=== PATIENT | female | born 1985 | race Hispanic/Latino ===

== ENCOUNTER 2017-01-02 12:56 | Emergency (ER) | payer OTHER ==
[~2017-01-02] VITALS: Ht 165.1 cm; Wt 103.6 kg
[2017-01-02 13:06] VITALS: BP 129/80; PULSE 71; RESP 18; O2SAT 99
--- NOTE | 2017-01-02 16:33 | ED.REPORT ---
HPI-General Illness Date of Service Jan 02, 2017 ED Provider: Adam Britt MD A 31 year old female with a history of ectopic and D&C presents to the ED complaining of back pain. The pt has been experiencing progressively worsening left-sided back pain for three days, which has been progressively worsening. The pain was severe enough today that she was unable to walk normally. The pt describes the pain as an "aching, sharp pain" that radiates into her left leg and is exacerbated by movement, currently rated at a 5/10. She denies diarrhea, constipation, incontinence, chest pain, shortness of breath , abdominal pain, urinary retention, fever, chills, nausea or vomiting. She also denies recent trauma or a history of IV drug use. The pt has experienced intermittent back pain for several years, but the pain usually resolves on its own. Nursing Notes Stated Complaint: BACK PAIN Chief Complaint: Back Pain or Injury Nursing Notes Reviewed: Yes Allergies: Coded Allergies: No Known Allergies (Verified , 09/01/03) General Time Seen by MD: 15:51 Chief Complaint Back pain Hx Obtained From: Patient Arrived By: Walk-in Sudden in Onset?: No Onset Occurred: 2 days ago Symptom Duration: Since onset Location: : Back Quality: Aching, Sharp Radiation: : Leg left Severity: Current: Pain level 5 out of 10 Recent Healthcare: No recent hospitalization Similar Sx Previous: Yes Past Medical History Past Medical History ectopic Past Surgical History D&C 2003 Smoking History Unknown if Ever Smoker Social History denies history of IV drug use Other Social History: Good social support Ambulatory Status Independent Review of Systems denies urinary retention denies incontinence Full Review of Systems Constitutional: Denies: Chills, Fever Respiratory: Denies: Non-productive cough, Shortness of breath Cardiovascular: Denies: Chest pain GI: Denies: Abdominal pain, Constipation, Diarrhea, Nausea, Vomiting Musculoskeletal: Reports: Back pain, Extremity pain, Denies: Neck pain Skin: Denies Rash Complete sys rev & neg: except as marked. Physical Exam Constitutional: Well-developed, well-nourished. Not diaphoretic. Head: Normocephalic and atraumatic. Mouth/Throat: Oropharynx is clear and moist. No oropharyngeal exudate. Eyes: EOM are normal. Pupils are equal, round, and reactive to light. Neck: Supple, no tracheal deviation. Cardiovascular: Normal rate, regular rhythm. Equal and intact distal pulses throughout. Pulmonary/Chest: Effort normal and breath sounds normal. No respiratory distress. Abdominal: Soft. No distension. There is no tenderness, rebound, or guarding. Bowel sounds present. Back: Mild lumbar paraspinous tenderness to palpation. No cervical or thoracic tenderness to palpation. No midline tenderness. Musculoskeletal: Range of motion grossly intact, moving all extremities. No edema or tenderness appreciated. Neurological: AOx3. Grossly nonfocal exam. Strength and sensation intact and equal to bilateral upper and lower extremities. Skin: Warm and dry, no rashes or pallor appreciated. Psychiatric: Appropriate mood and affect. Behavior appears normal. Vital Signs Vital Signs Date Time Temp Pulse Resp B/P Pulse Ox O2 Delivery O2 Flow Rate FiO2 01/02/17 13:06 36.8 71 18 129/80 99 Initial VS: Reviewed Interpretation & Diagnostics Lab Results Interpretation Test 01/02/17 17:10 Re-Eval/Medical Decision Med Decision/Clinical Course [id number] In summary, 31-year-old female presenting to the ED for evaluation of back pain that started approximately 2 days ago. DDx broad and includes lumbosacral strain , degenerative disc disease, cauda equina syndrome, epidural abscess, AAA, nephrolithiasis. No bowel/bladder incontinence or urinary retention, no saddle anesthesia, unremarkable exam with equal strength to bilateral lower extremities and grossly intact sensation to light touch. Afebrile, non-toxic appearing, no history of IV drug abuse. Patient denies abdominal pain and has a benign abdominal exam. No CVA tenderness or hematuria. Urine test negative. Patient does have a history of lower back pain; current presentation seems most consistent with an acute exacerbation vs lumbosacral strain. Patient given Decadron IM, as well as 30 mg of Toradol IM here in the ED with some improvement in symptoms. Given above, reasonable to discharge home w/ PCP f/u as soon as able to further discuss strategies to minimize pain and discomfort. Very careful return precautions were discussed, including to return immediately if any bowel or bladder incontinence, urinary retention, fever, or weakness. Patient agreeable to the plan as stated, no further questions. Source of Hx: Old records Time of Eval: 16:35 Patient Status: Condition improved Re-Evaluation/Progress Note: Pt rechecked, who is resting. The diagnosis and plan for discharge pending normal labs are discussed. The pt understands and agrees with the plan. All questions are addressed at this time. Counseled Regarding: Diagnosis, Lab results, Need for follow-up, When/why to return to ED Discharge & Departure Primary Impression: Back pain Back pain location: low back pain Chronicity: acute Back pain laterality: left Sciatica presence: unspecified whether sciatica present Qualified Code: M54.5 - Low back pain Disposition: Home Discharge Condition All VS Reviewed: Yes Condition: Stable Patient Instructions: Acute Low Back Pain (ED) Additional Instructions: Thank you for allowing us to be a part of your care. Call your primary care physician to arrange a follow up appointment tomorrow. Return to the emergency department if you develop any new or worsening symptoms such as bowel or bladder incontinence, urinary retention or fever, or if there is anything else of concern to you. Referrals: Leoncio Martinez ND (PCP) Scribe Attestation Portions of this note were transcribed by Vineet Juárez. I, Dr. Britt personally performed the history, physical exam and medical decision-making; I reviewed and confirmed the accuracy of the information in the transcribed note. copies to: Leoncio Martinez ND, William B MD Jan 02, 2017 16:32 VINEET JUÁREZ Jan 02, 2017 16:43
[2017-01-02] MEDS ORDERED: Dexamethasone 10 mg/mL Inj IM ONE (16:45)
[2017-01-02 17:59] VITALS: BP 127/84; PULSE 64; RESP 16; O2SAT 100
== END 2017-01-02 18:00 | disposition home or self-care (01) ==
LOC: SED 12:56
DX: M54.5 Low back pain (principal)
CPT/HCPCS: 81025; 96372; 99284; J1100; J1885